=== PATIENT | female | born 1970 | race Caucasian/White ===

== ENCOUNTER 2020-09-29 00:14 | Emergency (ER) | payer SELFPAY ==
[2020-09-29 00:59] LABS: #Basophils 0.1 10x3/uL (0.0-0.2); #Eosinphils 0.3 10x3/uL (0.0-0.5); #Monocytes 0.6 10x3/uL (0.0-1.1); #Neutrophils 2.7 10x3/uL (1.5-8.4); %Basophils 1.7 % (0.0-2.0); %Eosinophils 4.5 % (0.0-6.0); %Monocytes 9.8 % (0.0-10.0); %Neutrophils 43.8 % (40.0-75.0); Hemoglobin 9.2 g/dL (12.0-15.5); Mean Corpuscular HGB CONC 32.3 g/dL (32.0-36.0); Mean Corpuscular Hemoglobin 28.8 pg (27.0-33.0); Mean Corpuscular Volume 89.3 fl (81.6-98.3); Mean Platelet Volume 10.6 fl (7.4-10.4); Platelet Count 245 10x3/uL (150-450); RBC Distribution Width 13.1 % (11.5-14.5); Red Blood Cell (RBC) Count 3.19 10x6/uL (3.90-5.03); White Blood Cell (WBC) Count 6.1 10x3/uL (3.5-10.5)
[2020-09-29 01:12] LABS: BHCG - Serum Negative (NEGATIVE); Pregs Control Background? CLEAR/WHITE (CLR/WHITE); Pregs Control Bar Appear? YES (CONTROL BAR)
[2020-09-29 01:13] LABS: ALT (SGPT) 21 U/L (8-55); AST (SGOT) 20 U/L (5-34); Albumin 3.8 g/dL (3.5-5.0); Alkaline Phosphatase 69 U/L (40-110); Anion Gap 14 mmol/L (10-20); BUN (Urea Nitrogen) 15 mg/dL (7.0-18.7); Bilirubin, Total 0.1 mg/dL (0.2-1.2); Calc. Creatinine Clearance 0 mL/min (70-130); Calcium 8.8 mg/dL (7.8-10.44); Carbon Dioxide 26 mmol/L (22-29); Chloride 103 mmol/L (98-107); Globulin 2.8 g/dL (2.4-3.5); Glucose 112 mg/dL (70-105); Potassium 4.1 mmol/L (3.5-5.1); Protein, Total 6.6 g/dL (6.0-8.3); Sodium 139 mmol/L (136-145)
== END 2020-09-29 01:36 | disposition home or self-care (01) ==
LOC: CSHERS 00:14
DX: N93.8 Other specified abnormal uterine and vaginal bleeding (principal)
CPT/HCPCS: 80053; 84703; 85025; 99284

== ENCOUNTER 2021-03-17 08:59 | Outpatient (CLI) | payer OTHER | END 2021-03-17 09:00 | disposition home or self-care (01) | LOC: CSHLAB 08:59 | PROVIDERS: ATTEND Obstetrics & Gynecology | DX: Z01.812 Encounter for preprocedural laboratory examination (principal); Z20.822 Contact with and (suspected) exposure to COVID-19 | CPT/HCPCS: 84703; 85027; 86850; 86900; 86901; U0003; U0005 ==

== ENCOUNTER 2021-03-22 08:27 | Day surgery (SDC) | payer OTHER ==
[2021-03-17 10:21] LABS: Hemoglobin 9.2 g/dL (12.0-15.5); Mean Corpuscular HGB CONC 32.2 g/dL (32.0-36.0); Mean Corpuscular Hemoglobin 28.8 pg (27.0-33.0); Mean Corpuscular Volume 89.7 fl (81.6-98.3); Mean Platelet Volume 10.8 fl (7.4-10.4); Platelet Count 311 10x3/uL (150-450); RBC Distribution Width 12.5 % (11.5-14.5); Red Blood Cell (RBC) Count 3.19 10x6/uL (3.90-5.03); White Blood Cell (WBC) Count 4.9 10x3/uL (3.5-10.5)
[2021-03-17 10:29] LABS: BHCG - Serum Negative (NEGATIVE); Pregs Control Background? CLEAR/WHITE (CLR/WHITE); Pregs Control Bar Appear? YES (CONTROL BAR)
[2021-03-17 17:21] LABS: SARS-CoV-2 PCR by NAA Not Detected (NotDetected)
[2021-03-21 11:41] VITALS: BMI 28.3
[~2021-03-22 08:27] MED LIST: CeleCOXIB 100 MG CAP ONE; Gabapentin 300 MG CAP ONE
[2021-03-22] MEDS ORDERED: EPINEPHrine 1 MG/ML AMP ONE (09:39)
[2021-03-22] MEDS ORDERED: Bupivacaine PF 0.5% 30 ML VIAL ONE (09:39)
[2021-03-22] MEDS ORDERED: Lidocaine 1% MPF 2 ML VIAL ONE (09:46)
[2021-03-22] MEDS ORDERED: Famotidine/PF 20 mg/2ml Vial ONE (09:49)
[2021-03-22] MEDS ORDERED: PROPOFOL 20 ML ONE (09:53)
[2021-03-22] MEDS ORDERED: Fentanyl 100 MCG/2 ML VIAL ONE (09:53)
[2021-03-22] MEDS ORDERED: Levofloxacin 500 mg/D5W 100 ml Premix Bag ONE (09:54)
[2021-03-22] MEDS ORDERED: Lidocaine 1% PF 5 ML VIAL ONE (09:54)
[2021-03-22] MEDS ORDERED: Rocuronium Bromide 10 MG/ML (10ML VIAL) ONE (09:54)
[2021-03-22] MEDS ORDERED: Ondansetron PF 4 MG/2 ML Vial ONE ×2 (10:30→14:48)
[2021-03-22] MEDS ORDERED: Dexamethasone 4 mg/ml Vial ONE (10:30)
[2021-03-22] MEDS ORDERED: ePHEDrine Sulfate 50 MG/10 ML VIAL ONE (11:19)
[2021-03-22] MEDS ORDERED: Glycopyrrolate 0.2 MG/ML 5 ML SYRINGE ONE (11:40)
[2021-03-22] MEDS ORDERED: HYDROcodone/Acetaminophen 5/325 mg Tablet ONE (14:30)
[2021-03-22] MEDS ORDERED: Metoclopramide HCl 10 MG/2 ML VIAL ONE (15:17)
== END 2021-03-22 16:00 | disposition home or self-care (01) ==
LOC: CSHSDC 08:27
PROVIDERS: ATTEND Obstetrics & Gynecology
PROC: 0UT94ZZ Resection of Uterus, Percutaneous Endoscopic Approach (ICD-10-PCS; principal; 2021-03-22)
PROC: 0UT74ZZ Resection of Bilateral Fallopian Tubes, Percutaneous Endoscopic Approach (ICD-10-PCS; principal; 2021-03-22)
DX: D25.9 Leiomyoma of uterus, unspecified (principal); N88.8 Other specified noninflammatory disorders of cervix uteri; N80.0 Endometriosis of uterus; N83.8 Other noninflammatory disorders of ovary, fallopian tube and broad ligament; Z98.51 Tubal ligation status; Z88.0 Allergy status to penicillin
CPT/HCPCS: 36415; 84703; 85027; 86850; 86900; 86901; 88307; J0171; J1100; J1956; J2405; J2704; J2765; J3010; J3490; S0020; S0028; U0003; U0005